=== PATIENT | male | born 1955 | race Two or more races ===

== ENCOUNTER 2018-09-27 01:24 | Emergency (ER) | payer OTHER ==
[~2018-09-27] VITALS: Ht 177.8 cm; Wt 81.6 kg
[2018-09-27 01:34] VITALS: BP 174/100
[2018-09-27] MEDS ORDERED: NAPROXEN250 MG ORAL (01:37)
--- NOTE | 2018-09-27 01:37 | Emergency Room Report ---
History of Present Illness General Chief Complaint: Behavioral Complaint Source: Patient Present Illness HPI 63-year-old male presents to the emergency room to be evaluated for possible schizophrenia he denies any chest pain shortness of breath, patient was told by another psychiatric patient that he may have schizophrenia, patient denies hearing voices, he has no suicidal or homicidal ideations. He states he wants to spend the night here to have somewhere to stay. Allergies: Coded Allergies: No Known Allergies (Unverified , 09/27/18) Patient History Past Medical History: see triage record Reviewed Nursing Documentation: PMH: Agreed; PSxH: Agreed Nursing Documentation-PMH Past Medical History: No History, Except For Hx Hypertension: Yes Hx Diabetes: Yes Review of Systems All Other Systems: negative except mentioned in HPI Physical Exam Vital Signs Date Time Temp Pulse Resp B/P (MAP) Pulse Ox O2 Delivery O2 Flow Rate FiO2 09/27/18 01:25 98.4 106 16 174/100 (124) 98 Sp02 EP Interpretation: reviewed, normal General Appearance: well appearing, no apparent distress, alert Head: normocephalic, atraumatic Eyes: bilateral eye PERRL, bilateral eye EOMI ENT: uvula midline, moist mucus membranes Neck: supple, thyroid normal, supple/symm/no masses Respiratory: lungs clear, no respiratory distress, no retraction, no accessory muscle use Cardiovascular #1: normal peripheral pulses, regular rate, rhythm, no edema, no gallop, no murmur Gastrointestinal: non tender, soft, no guarding, no rebound Musculoskeletal: normal inspection Neurologic: alert, oriented x3 Psychiatric: mood/affect normal Skin: no rash, warm/dry Medical Decision Making Diagnostic Impression: Primary Impression: Behavioral disorder ER Course Patient with no acute emergent needs, counseled patient that he needs to follow- up with psychiatry, patient counseled that he cannot stay here overnight just because he wants a place to stay no SI HI, disposition home with return precautions Last Vital Signs Date Time Temp Pulse Resp B/P (MAP) Pulse Ox O2 Delivery O2 Flow Rate FiO2 09/27/18 01:25 98.4 106 16 174/100 (124) 98 Disposition: HOME, SELF-CARE Condition: Stable Referrals: [facility] Patient Instructions: Paranoia, Schizoaffective Disorder, Schizophrenia Additional Instructions: The patient was provided with discharge instructions, notified to follow-up with a primary care doctor and or specialist in the next 24-48 hours, and to return to the ED if they have worsening of their symptoms. Please note that this report is being documented using [employer] technology. This can lead to erroneous entry secondary to incorrect interpretation by the dictating instrument. Tony Jose MD Sep 27, 2018 01:37
--- NOTE | 2018-09-27 01:38 | NUR ---
ED Nurse Note: pt ambulated to ER stating "my friend told me im schizophrenic and I want to diagnose myself". pt denies pain at this time. Pt is AO x 4times, VSS, on room air no distress. DENISE seen Pt at bedside.
--- NOTE | 2018-09-27 01:50 | NUR ---
ER DISCHARGE NOTE: Patient is cleared to be discharged per ERMD, pt is aox4, on room air, with stable vital signs. pt was given dc and prescription instructions, pt was able to verbalize understanding, pt id band removed without complications. pt is able to ambulate with steady gait. pt took all belongings.
--- NOTE | 2018-09-27 01:53 | NUR ---
Homeless Discharge: Patient is being discharged from medical care. Awake, alert and oriented x3. After care instructions, including referral to community resources were given. Patient verbalized understanding of After care instructions; at this time patient does not request medications, equipment or placement. Patient signed patient consent in the medical record for patient destination upon discharge. All medical devices such as IV and ID band were removed. Patient ambulated out with all personal belongings with steady gait.
== END 2018-09-27 02:00 | disposition home or self-care (01) ==
LOC: EMR 01:36
DX: F91.9 Conduct disorder, unspecified (principal); I10 Essential (primary) hypertension; E11.9 Type 2 diabetes mellitus without complications
CPT/HCPCS: 99281